=== PATIENT | male | born 1955 | race Caucasian/White ===

== ENCOUNTER → 2021-09-27 | Outpatient (CLI) | payer MEDICARE ==
[~2021-09-27] MED LIST: ATENOLOL25 MG PO; ATORVASTATIN CA20 MG PO; BUPRENORPHIN-N1 EACH PO; BUSPIRONE HCL15 MG PO; IMDUR ER TAB 3030 MG PO; LISINOPRIL-HCT1 EAC2 PO; VENTOLIN HFA 66.7 GM INH
== END ==
LOC: KOH-I 14:13
DX: F17.210 Nicotine dependence, cigarettes, uncomplicated (principal); R91.1 Solitary pulmonary nodule
CPT/HCPCS: 71271

== ENCOUNTER → 2021-10-26 | Outpatient (CLI) | payer MEDICARE ==
[~2021-10-26] MED LIST changes: +ALBUTEROL2.5 MG/3 M INH; +NEBULIZER UNIT; +PREDNISONE20 MG PO; +ZITHROMAX250 MG PO
== END ==
LOC: CARD REHAB 11:21 → HEART 5 11:21
DX: J44.9 Chronic obstructive pulmonary disease, unspecified (principal)
CPT/HCPCS: 94060; 94729

== ENCOUNTER 2021-10-28 18:35 | Emergency (ER) | payer MEDICARE ==
[~2021-10-28 18:35] MED LIST changes: -ALBUTEROL2.5 MG/3 M INH; -NEBULIZER UNIT; -PREDNISONE20 MG PO; -ZITHROMAX250 MG PO
[2021-10-28 19:38] LABS: HEMOGLOBIN 12.5 gm/dl (14.0-17.5); RED BLOOD COUNT 3.74 M/UL (4.20-5.50); WHITE BLOOD COUNT 10.7 K/UL (4.5-11.0)
[2021-10-28 19:57] LABS: BUN/CREATININE RATIO 15 (0-10)
[2021-10-28] MEDS ORDERED: ALBUTEROL2.5 MG/3 M INH (21:40)
[2021-10-28] MEDS ORDERED: ZITHROMAX250 MG PO (21:40)
[2021-10-28] MEDS ORDERED: NEBULIZER UNIT (21:40)
[2021-10-28] MEDS ORDERED: PREDNISONE20 MG PO (21:40)
== END 2021-10-28 21:57 | disposition home or self-care (01) ==
LOC: ER1 18:35
PROVIDERS: Family Medicine
DX: J44.9 Chronic obstructive pulmonary disease, unspecified (principal); D72.10 Eosinophilia, unspecified; I10 Essential (primary) hypertension; F17.210 Nicotine dependence, cigarettes, uncomplicated
CPT/HCPCS: 36600; 71045; 80053; 81001; 82550; 82553; 82803; 83605; 84484; 85025; 87040; 87070; 87205; 93005; 94640; 94664; 96374; 99285; J2930

== ENCOUNTER → 2021-12-31 | Outpatient (CLI) | payer MEDICARE ==
[~2021-12-31] MED LIST changes: +ALBUTEROL2.5 MG/3 M INH; +NEBULIZER UNIT; +PREDNISONE20 MG PO; +ZITHROMAX250 MG PO
[2021-12-31 15:13] LABS: BUN/CREATININE RATIO 15 (0-10)
== END ==
LOC: CT 12-23 09:00
PROVIDERS: Physician Assistant Surgical
DX: R10.11 Right upper quadrant pain (principal); M62.08 Separation of muscle (nontraumatic), other site; K42.9 Umbilical hernia without obstruction or gangrene; K86.89 Other specified diseases of pancreas
CPT/HCPCS: 74160; 80048; Q9967

== ENCOUNTER 2022-04-03 19:07 | Emergency (ER) | payer MEDICARE | END 2022-04-03 22:22 | disposition short-term general hospital (02) | LOC: ER1 19:07 | DX: S68.621A Partial traumatic transphalangeal amputation of left index finger, initial encounter (principal); Z23 Encounter for immunization; W26.8XXA Contact with other sharp object(s), not elsewhere classified, initial encounter | CPT/HCPCS: 12002; 73130; 90471; 90715; 96374; 99284; J0696 ==